=== PATIENT | male | born 1995 | race Caucasian/White ===

== ENCOUNTER 2020-08-17 21:20 | Emergency (ER) | payer BC, SELFPAY ==
[2020-08-17 21:21] VITALS: BP 127/82; PULSE 79; RESP 15; TEMP 36.7; O2SAT 98; BMI 27.8
[2020-08-17 21:30] VITALS: PULSE 83; RESP 18; O2SAT 94
--- NOTE | 2020-08-17 21:58 | ED.VIS.DYS ---
HPI History of Present Illness Chief Complaint: Asthma Informant: patient Onset/Context/Timing Onset: Hours (1) Context: sudden (was working in field w/ hay) Timing: Continuous Quality: Positive for Wheezing Current Severity: Mild Maximum Severity: Severe Worsened by: Nothing Relieved by: Albuterol Associated Symptoms Negative for cough Chest Pain: Positive for Tightness (and in throat) Narrative Narrative: Patient felt like he was having a severe asthma attack. Albuterol helped a little, but felt like he could not fully recover. No other acute issues. He was working in the field with hay and thinks it was an allergic reaction to that, but he also ate some dairy prior to this. He eats dairy frequently without reaction. He does have a history of asthma. [facility] Medical History (Updated 08/17/20 @ 23:[address] Hema Carlos MD) Asthma Home Medications aspirin [Bette Aspirin] 325 mg PO DAILY 08/17/20 [History Last Taken Unknown] prednisone 40 mg PO DAILY #10 tab 08/17/20 [Rx Last Taken Unknown] Allergy/AdvReac Type Severity Reaction Status Date / Time No Known Allergies Allergy Verified 08/17/20 21:21 Social History Smoking Status: Never smoker ROS ROS ED Constitutional Constitutional ED: Denies chills or fever(s) Eyes Eyes: Denies change in vision or diplopia ENT ENT ED: Denies rhinorrhea or sore throat Cardiovascular Cardiovascular: Reports as per HPI and chest pain; Denies palpitations Respiratory/Chest Respiratory/Chest: Reports as per HPI, chest tightness and wheezing; Denies cough Gastrointestinal Gastrointestinal: Denies abdominal pain, diarrhea, nausea or vomiting Genitourinary Genitourinary ED: Denies dysuria or hematuria Musculoskeletal Musculoskeletal: Reports extremity pain and other Details: Broke left ankle 12 weeks ago ; Denies back pain or neck pain Integumentary Denies abscess or rash Neurologic Neurologic: Denies headache(s), paresthesias or weakness Psychiatric Psychiatric: Denies anxiety or suicidal thoughts EXAM Physical Exam Const Vital Signs: 08/17/20 21:21 08/17/20 21:30 08/17/20 22:03 Temperature 98.0 F Temperature Source Temporal Pulse Rate 79 83 78 Respiratory Rate 15 18 18 Respiratory Effort Normal Respiratory Depth Normal Respiratory Pattern Normal Normal Blood Pressure 127/82 H Blood Pressure Mean 97 Pulse Ox 98 94 Oxygen Delivery Method Room Air Nasal Cannula Oxygen Flow Rate (L/min) 2.5 Positive well nourished and well developed General Appearance ED: well developed and NAD HEENT Reports moist mucous membranes normocephalic and atraumatic Eyes PERRL and EOMs intact bilaterally Neck full ROM and supple Resp normal respiratory effort Effort and Inspection: able to speak in complete sentences Auscultation: wheezes expiratory wheezes (End expiratory, mild) Cardio regular rate, regular rhythm and no murmurs GI non-tender and non-distended Auscultation: normoactive bowel sounds Palpation: soft Back/Spine no CVA tenderness General Back: other FROM Extremity normal to inspection Extremity Narrative: Left lower extremity and orthotic boot, patient has crutches to get around given his fracture General Extremety ED: Negative for edema, pulses abnormal or tenderness General Extremity: Negative for edema or pulses abnormal Neuro oriented x3, CN's II-XII intact bilaterally and no sensory deficits noted Sensorium / Orientation: awake and alert Motor Exam: strength 5/5 throughout Skin no rashes or lesions noted and no wounds MDM MDM MDM Narrative Medical decision making narrative: Chest x-ray normal, patient feeling much better after duo nebulizer treatment. [place] and is around hay all of the time, and although he was rounded tonight, it is unclear as to exactly why he flared up this time. Since he is only had this attack/flare in for a short period of time, we discussed a wait and see prescription for prednisone, and he agrees that is reasonable. Radiography Chest X-Ray - ED: 1 View, Read by ED Physician, Normal, No Acute Disease and No Infiltrates Diagnostic Testing: Radiology Impression Chest X-Ray 08/17/20 22:10 IMPRESSION: No acute cardiopulmonary pathology Electronically Signed: Parker Maharaj MD at 22:36 EDT , Service support , Discharge Plan Triage Chief Complaint: Asthma ED Provider: Hema Carlos Dx/Rx/DC Orders Clinical Impression: Acute asthma exacerbation Instructions: ED Asthma, Acute (Adult) Prescriptions: New prednisone 20 mg tablet 40 mg PO DAILY Qty: 10 RF: 0 No Action aspirin [Bette Aspirin] 325 mg tablet 325 mg PO DAILY RF: 0 Primary Care Provider: Lexy Samuel Referrals: Lexy Samuel MD [Primary Care Provider] - 1 Week if not improving Activity Restrictions/Additional Instructions: With regards to the prednisone prescription, wait and see how you are doing tomorrow if you continue to have issues and needing to use albuterol more than 3 or 4 times per day, fill and take the prednisone prescription until finished. Disposition Disposition: Home, self care
[2020-08-17 22:03] VITALS: PULSE 78; RESP 18
[2020-08-17] MEDS: Ipratropium/Albuterol Sulfate 3 ML AMPUL.NEB INHALATION (22:03)
--- NOTE | 2020-08-17 22:10 | RAD_ITS ---
STUDY: X-RAY CHEST REASON FOR EXAM: Male, 25 years old. sob TECHNIQUE: AP portable COMPARISON: None. FINDINGS: The lungs are clear and expanded. There is no demonstrated pleural abnormality. Normal size heart. Normal mediastinum and gomez. Normal visualized pulmonary arteries. Normal visualized aortic arch and descending thoracic aorta. Normal visualized thoracic spine. Normal visualized ribs, clavicles, and shoulders. Surgical clips are seen in the right supraclavicular region There is no demonstrated abnormality of the visualized soft tissue structures of the upper abdomen. RAD/Chest 1 View (Portable) IMPRESSION: No acute cardiopulmonary pathology Electronically Signed: Parker Maharaj MD at 22:36 EDT , Service support ,
[2020-08-17] MEDS: predniSONE 20 MG Tablet 40 MG PO (22:22)
== END 2020-08-17 23:16 | disposition home or self-care (01) ==
PROVIDERS: Emergency Provider Emergency Medicine; PCP Family Medicine
DX: J45.901 Unspecified asthma with (acute) exacerbation (principal)
CPT/HCPCS: 71045; 94640; 99283

== ENCOUNTER 2022-02-24 01:29 | Emergency (ER) | payer BC, SELFPAY ==
[2022-02-24 01:31] VITALS: BP 128/79; PULSE 88; RESP 18; TEMP 36.6; O2SAT 95; BMI 29.7
--- NOTE | 2022-02-24 01:37 | ED.VIS.DYS ---
HPI History of Present Illness Chief Complaint: Shortness of Breath Informant: patient Onset/Context/Timing Onset: Today Context: sudden Timing: Continuous Quality: Positive for Wheezing Worsened by: Nothing Relieved by: Nothing Associated Symptoms cough; Negative for post nasal drip, ear pain, fever, sore throat, chills or sweats Chest Pain: Positive for None Narrative Narrative: Lorena with shortness of breath that began tonight. Patient states it woke him up out of his sleep. Patient states he has a history of asthma. Patient states he feels like he is wheezing. Patient states he tried his home inhaler which did not help. Patient admits to some upper respiratory congestion and cough. Patient denies any ear pain or sore throat. Patient denies any fevers or chills. Patient denies any chest pain. Patient denies any nausea or vomiting. PE Risk Factors: Negative for Cancer, OCP + Smoking + > 35, Prior DVT or PE, Recent immobilization, Recent surgery or Recent travel [facility] Medical History Asthma Allergy/AdvReac Type Severity Reaction Status Date / Time No Known Allergies Allergy Verified 02/24/22 01:33 Social History Smoking Status: Never smoker ROS ROS ED Constitutional Constitutional ED: Denies chills or fever(s) Eyes Eyes: Denies blurry vision or change in vision ENT ENT ED: Denies ear pain or sore throat Cardiovascular Cardiovascular: Denies chest pain or palpitations Respiratory/Chest Respiratory/Chest: Reports cough and dyspnea Gastrointestinal Gastrointestinal: Denies nausea or vomiting Genitourinary Genitourinary ED: Denies dysuria or hematuria Musculoskeletal Musculoskeletal: Denies back pain or neck pain Integumentary Denies abscess or rash Neurologic Neurologic: Denies headache(s) or weakness Allergic/Immunologic Allergic/Immunologic ED: Denies mouth swelling or urticaria EXAM Physical Exam Const Vital Signs: 02/24/22 01:31 02/24/22 01:31 02/24/22 01:49 Temperature 97.9 F Temperature Source Temporal Pulse Rate 88 76 Respiratory Rate 18 20 H Blood Pressure 128/79 H Blood Pressure Mean 95 Pulse Ox 95 95 Oxygen Delivery Method Room Air Room Air Positive well nourished and well developed General Appearance ED: well developed HEENT Reports moist mucous membranes Neck supple and no JVD Resp normal respiratory effort Auscultation: wheezes expiratory wheezes and throughout Cardio regular rate, regular rhythm and no murmurs GI normal to inspection, nondistended, normoactive bowel sounds and non-tender Palpation: soft Extremity normal to inspection General Extremety ED: Negative for edema or tenderness General Extremity: Negative for edema Neuro oriented x3, CN's II-XII intact bilaterally and no sensory deficits noted Sensorium / Orientation: alert Motor Exam: strength 5/5 throughout Psych mental status grossly normal Skin no rashes or lesions noted MDM MDM MDM Narrative Medical decision making narrative: Patient was given a DuoNeb aerosol here. COVID-19 rapid antigen was obtained and was negative. Influenza A and influenza B rapid antigens were obtained and were negative. PA and lateral chest x-ray was obtained. There are 2 views. On my interpretation, lung hernandez are clear. There is normal cardiac silhouette. Bony thorax is normal. There is no acute process noted. Radiologist also interpreted the x-ray and agrees. Patient is feeling better on reevaluation. Patient was instructed to continue his inhalers as previously prescribed. Patient was instructed to follow-up with his primary care physician in 3 to 5 days. Patient understood and was agreeable with the plan. All questions were answered. Radiography Chest X-Ray - ED: 2 View, Read by ED Physician, Read by Radiologist, Normal and No Acute Disease Diagnostic Testing: Clinical Impression(s) from Imaging Studies Chest X-Ray 02/24/22 01:43 IMPRESSION: No radiographic evidence of acute cardiopulmonary disease. Electronically Signed: Deric De Anda MD at 2:24 EST Reading Location ID and State: [facility] / [place] , Service support , Discharge Plan Triage Chief Complaint: Shortness of Breath ED Provider: Singh Cameron Dx/Rx/DC Orders Clinical Impression: Acute asthma exacerbation, Dyspnea Instructions: ED Asthma, Acute (Adult) Primary Care Provider: Lexy Samuel Referrals: Lexy Samuel MD [Primary Care Provider] - 3-5 Days Disposition Disposition: Home, Self Care
--- NOTE | 2022-02-24 01:43 | RAD_ITS ---
EXAM: XR CHEST, 2 VIEWS CLINICAL INDICATION: Dyspnea Dyspnea TECHNIQUE: Frontal and lateral views of the chest. This report was created using [employer] it report generation technology. COMPARISON: Chest x-ray 08/17/2020. FINDINGS: LUNGS AND PLEURAL SPACES: Unremarkable. No consolidation or edema. No pneumothorax. No effusion. HEART: Unremarkable. Cardiac silhouette not enlarged. MEDIASTINUM: Central airways and mediastinal contour are unremarkable. BONES/JOINTS: Unremarkable. SOFT TISSUES: Unremarkable. RAD/Chest PA and Lateral IMPRESSION: No radiographic evidence of acute cardiopulmonary disease. Electronically Signed: Deric De Anda MD at 2:24 EST ,
[2022-02-24 01:49] VITALS: PULSE 76; RESP 20
[2022-02-24] MEDS: Ipratropium/Albuterol Sulfate 3 ML AMPUL.NEB INHALATION (01:49)
[2022-02-24 03:44] VITALS: BP 128/76; PULSE 94; RESP 16; O2SAT 94
== END 2022-02-24 03:45 | disposition home or self-care (01) ==
PROVIDERS: Emergency Provider Emergency Medicine; PCP Family Medicine; Visit Provider Emergency Medicine
DX: J45.901 Unspecified asthma with (acute) exacerbation (principal); R06.02 Shortness of breath; Z20.822 Contact with and (suspected) exposure to COVID-19
CPT/HCPCS: 71046; 87428; 94640; 99282